=== PATIENT | female | born 1945 | race Caucasian/White ===

== ENCOUNTER 2016-08-29 14:21 | Emergency (ER) | payer OTHER ==
[~2016-08-29 14:21] MED LIST: ATEN-102 PO; CARD120C4 PO; FOSI20TA PO; JANU100T PO; LEVO.025 PO; METF850 PO; PAME75CA PO; PIOG30 PO; WARF1TAB PO; [UNRECOGNIZED DRUG - CODE] PO
[2016-08-29 14:28] VITALS: BP 172/81; PULSE 61; RESP 16; TEMP 98; O2SAT 94
--- NOTE | 2016-08-29 14:36 | PD ---
HPI . left 4th digit laceration this am Chief Complaint: Laceration/Skin Injury Time Seen by Provider: 14:36 Travel History International Travel<30 days: No Contact w/Intl Traveler<30days: No Traveled to known affect area: No History of Present Illness HPI 70 year-old female here with complaints of laceration to her left fourth digit. Patient was working in her yard and accidentally snipped her left fourth digit with her gardening az. She now has a small approximately 1.4 cm laceration to her left fourth digit on the palmar aspect at the PIP joint. She is on warfarin and says she has had difficulty controlling the bleeding, which is why she decided to come to the emergency room for further evaluation. She does not recall the date of her last tetanus vaccine. PFSH Past Medical History Hx Anticoagulant Therapy: Yes Blood Disorders: Yes (GETS CLOTS EASILY) Depression: Yes Heart Rhythm Problems: No Cardiac Catheterization: No Cardiovascular Problems: Yes High Cholesterol: No Congestive Heart Failure: No Diabetes: Yes Diminished Hearing: No Hypertension: Yes Migraines: Yes Menopausal: Yes Past Surgical History Cholecystectomy: Yes Coronary Artery Bypass Graft: No Tonsillectomy: Yes Social History Alcohol Use: No Tobacco Use: No Substance Use: No Allergies-Medications (Allergen,Severity, Reaction): Coded Allergies: Penicillin (Verified Allergy, Severe, Hives, 08/29/16) Reported Meds & Prescriptions Reported Meds & Active Scripts Active Reported Lomotil (Diphenoxylate-Atropine) 2.5-0.025 Mg Tab 1 Tab PO Q6H PRN Zohra Allergy (Fexofenadine HCl) 180 Mg Tab 180 Mg PO DAILY PRN Ascomp-Codeine (Fbpzscmsqu-Lzydnew-Hnxnrfpb-Codeine) 18-462-04-30 Mg Cap 1-2 Cap PO Q4H PRN Do not exceed 6 capsules/day. Magnesium Oxide 500 Mg Tab 250 Mg PO BID Vitamin D3 (Cholecalciferol) 1,000 Unit Chew 1,000 Units CHEW DAILY [id number] (Methylcobalamin) 1 Mg Chew 1,000 Mcg CHEW DAILY Calcium 1200 (Calcium Carbonate-Vitamin D W/Minerals) 1,200-1,000 Mg-Unit Chew 1 Tab CHEW BID Centrum (Multiple Vitamins W/ Minerals) 1 Tab 0.5 Tab PO BID Cartia Xt (Diltiazem ER 24 HR) 120 Mg Caper 120 Mg PO DAILY Warfarin 10 Mg Tab 10 Mg PO DAILY Levoxyl (Levothyroxine Sodium) 25 Mcg Tab 25 Mcg PO DAILY Nortriptyline (Nortriptyline HCl) 75 Mg Cap 150 Mg PO HS Fosinopril (Fosinopril Sodium) 20 Mg Tab 20 Mg PO DAILY Atenolol 100 Mg Tab 75 Mg PO BID Actos (Pioglitazone HCl) 15 Mg Tab 15 Mg PO DAILY Januvia (Sitagliptin Phosphate) 100 Mg Tab 100 Mg PO DAILY Metformin (Metformin HCl) 850 Mg Tab 850 Mg PO BIDPC With meals Review of Systems General / Constitutional: No: Fever Eyes: No: Visual changes HENT: No: Headaches Cardiovascular: No: Chest Pain or Discomfort Respiratory: No: Shortness of Breath Gastrointestinal: No: Abdominal Pain Genitourinary: No: Dysuria Musculoskeletal: No: Pain Skin: Positive Other (left ring finger laceration), No Rash Neurologic: No: Weakness Psychiatric: No: Depression Endocrine: No: Polydipsia Hematologic/Lymphatic: No: Easy Bruising Physical Exam Narrative GENERAL: AAO x 3, no acute distress, Well-nourished, well-developed patient. SKIN: Warm and dry. No visible rashes or bruising. small laceration to left 4th digit palmar side HEAD: Normocephalic and atraumatic. EYES: No scleral icterus. No injection or drainage. ENT: No nasal drainage noted. Mucous membranes pink. Airway patent. NECK: Supple, trachea midline. No JVD. CARDIOVASCULAR: Regular rate and rhythm without murmurs, gallops, or rubs. RESPIRATORY: Breath sounds equal bilaterally. No accessory muscle use. No rhonchi or rales. GASTROINTESTINAL: Abdomen soft, non-tender, nondistended. EXTREMITIES: No cyanosis or edema. movement is normal in all digits of left hand. sensation is intact. BACK: Nontender without obvious deformity. No CVA tenderness. PSYCH: AAO x 3, normal affect. Data Data Last Documented VS Vital Signs Date Time Temp Pulse Resp B/P Pulse Ox O2 Delivery O2 Flow Rate FiO2 08/29/16 14:28 98.0 61 16 172/81 94 Orders Lidocaine 1% Inj (50 Ml) (Xylocaine 1% I (08/29/16 14:45) Tetanus/Diphtheria Tox Adult (Tetanus/Di (08/29/16 14:45) MDM Medical Decision Making Medical Screen Exam Complete: Yes Emergency Medical Condition: Yes Medical Record Reviewed: Yes Differential Diagnosis finger laceration, contusion, less likely fracture Narrative Course 70 year-old female here with complaints of laceration to her left fourth digit. Patient was working in her yard and accidentally snipped her left fourth digit with her gardening az. She now has a small approximately 1.4 cm laceration to her left fourth digit on the palmar aspect at the PIP joint. She is on warfarin and says she has had difficulty controlling the bleeding, which is why she decided to come to the emergency room for further evaluation. She does not recall the date of her last tetanus vaccine. Patient seen and examined. She does have a 1.4 cm laceration Lac repaired and bleeding controlled. Clean dressing applied Tetanus administered No abx. Discussed wound care and cleaning area. Discussed signs of infection Recommend removal in 7-10 days. 4 sutures placed Patient verbalized understanding of instructions, questions were answered, and thanked me for their care. I advised them if their condition worsens, please return to the nearest emergency room for further care. Procedures Procedure Narrative LACERATION LOCATION: Left ring finger LENGTH: 1.4 cm NUMBER OF STITCHES/MARIA M: 4 REPAIR: The area of the laceration was prepped with Betadine and sterilely draped. The laceration was infiltrated with 1% lidocaine digital block. The wound was copiously irrigated and explored without evidence of foreign body, tendon injury or neurovascular injury return tourniquet was used. The wound was closed using 4-0 Prolene. This was a single layer repair. A sterile dressing was applied. The patient was advised to keep the dressing clean and dry. Patient tolerated the procedure well. Diagnosis Primary Impression: Laceration of left ring finger w/o foreign body w/o damage to nail Qualified Code: S61.215A - Laceration of left ring finger w/o foreign body w/ o damage to nail, initial encounter Patient Instructions: Acute Wound Care (ED), Finger Laceration (ED), General Instructions Additional Instructions: Keep area clean and dry. Use soap and water. Use gauze as we discussed and change 1-2 times a day. Watch for signs of infection: fever, redness, swelling, warmth, pus or drainage , red streaks around the cut, and increased pain from the area. If any signs of infection, please go to the nearest emergency room for evaluation. You received a tetanus shot today. You may experience tenderness at the injection site. This is normal. Use Tylenol or Motrin as needed for pain. The sutures will need to be removed in 7-10 days. There were 4 sutures placed. Please return to the emergency department or follow-up with your primary care provider for removal. If area continues to bleed, please return to ED for further treatment/ evaluation. Med/Other Pt SpecificInfo: No Change to Meds Disposition: 01 DISCHARGE HOME Condition: Stable Sydnie Hassan Aug 29, 2016 14:36
[2016-08-29] MEDS ORDERED: TETANUS/DIPHTHERIA TOXOID ADULT 0.5 ML VIAL IM ONE (14:45)
[2016-08-29] MEDS ORDERED: LIDOCAINE HCL 1% 50 ML VIAL INFIL ONE (14:45)
[2016-08-29] MEDS ORDERED: CHOL100025 CHEW (14:51)
[2016-08-29] MEDS ORDERED: LEVO25TA39 PO (14:51)
[2016-08-29] MEDS ORDERED: FEXO15TA PO (14:51)
[2016-08-29] MEDS ORDERED: WARF-22 PO (14:51)
[2016-08-29] MEDS ORDERED: CALCCHW9 CHEW (14:51)
[2016-08-29] MEDS ORDERED: ATEN100T PO (14:51)
[2016-08-29] MEDS ORDERED: CART120C PO (14:51)
[2016-08-29] MEDS ORDERED: MAGN500T2 PO (14:51)
[2016-08-29] MEDS ORDERED: NORT75CA PO (14:51)
[2016-08-29] MEDS ORDERED: LOMO2.5T PO (14:51)
[2016-08-29] MEDS ORDERED: FOSI20TA PO (14:51)
[2016-08-29] MEDS ORDERED: ACTO15TA11 PO (14:51)
[2016-08-29] MEDS ORDERED: SITA1TAB2 PO (14:51)
[2016-08-29] MEDS ORDERED: BUTA1CAP PO (14:51)
[2016-08-29] MEDS ORDERED: METF850T PO (14:51)
[2016-08-29] MEDS ORDERED: MULT-6 PO (14:51)
[2016-08-29] MEDS ORDERED: B12-1CHW CHEW (14:51)
== END 2016-08-29 15:50 | disposition home or self-care (01) ==
LOC: PHEFT 14:21
DX: S61.215A Laceration without foreign body of left ring finger without damage to nail, initial encounter (principal); W27.1XXA Contact with garden tool, initial encounter; Y93.H2 Activity, gardening and landscaping; Y92.007 Garden or yard of unspecified non-institutional (private) residence as the place of occurrence of the external cause; Z23 Encounter for immunization
CPT/HCPCS: 12001; 90471; 90714

== ENCOUNTER → 2016-10-26 | Day surgery (SDC) | payer OTHER ==
[~2016-10-26] MED LIST changes: +ACTO15TA11 PO; +ACTO30TA10 PO; -ATEN-102 PO; +ATEN100T PO; +B12-1CHW CHEW; +BUPIVACAINE HCL PF 0.75% 30 ML VIAL ONE; +BUTA1CAP PO; +CALC600T64 PO; +CALCCHW9 CHEW; -CARD120C4 PO; +CART120C PO; +CENTCHW4 CHEW; +CHOL100025 CHEW; +CLINDAMYCIN PHOS 600 MG/4 ML VIAL ONE; +FEXO15TA PO; -JANU100T PO; +LACTATED RINGER'S 1,000 ML BAG IV ONE; -LEVO.025 PO; +LEVO25TA39 PO; +LIDOCAINE 1.5%/EPINEPHrine 1:200,000 PF SOLN 30 ML AMP ONE; +LOMO2.5T PO; +MAGN500T2 PO; -METF850 PO; +METF850T PO; +METH10003 PO; +MIDAZOLAM HCL 2 MG/2 ML VIAL ONE; +MULT-6 PO; +NORT75CA PO; +ONDANSETRON HCL 4 MG/2 ML VIAL ONE; -PAME75CA PO; +PERC5TAB12 PO; -PIOG30 PO; +PROPOFOL 200 MG/20 ML AMP IV ONE; +SITA1TAB2 PO; +SODIUM CHLOR 0.9% 1000 ML BAG IV ONE; +SODIUM CHLORIDE 0.9% SOLN 100 ML (PAB) BAG IV ONE; +WARF-22 PO; -WARF1TAB PO; -[UNRECOGNIZED DRUG - CODE] PO
--- NOTE | 2016-10-27 09:09 | MP ---
cc: PARKER AMADOR DATE OF SURGERY 10/26/2016 PREOPERATIVE DIAGNOSES 1. Right shoulder rotator cuff tear. 2. Right shoulder impingement syndrome. 3. Right shoulder SLAP labral tear. 4. Right shoulder osteoarthritis acromioclavicular joint. POSTOPERATIVE DIAGNOSES 1. Right shoulder rotator cuff tear. 2. Right shoulder impingement syndrome. 3. Right shoulder SLAP labral tear. 4. Right shoulder osteoarthritis acromioclavicular joint. PROCEDURE Right shoulder arthroscopic rotator cuff repair. Right shoulder arthroscopic subacromial decompression. Right shoulder arthroscopic extensive debridement of labral SLAP tear. Right shoulder arthroscopic distal clavicle excision. SURGEON Dr. Parker Amador MEDICAL INSURANCE CLERK Corona Deal PA-C ANESTHESIA General with interscalene block. ESTIMATED BLOOD LOSS Less than 10 cc. COMPLICATIONS None. IMPLANTS USED Arthrex. JUSTIFICATION This patient is a 71-year-old female who injured the right shoulder. She has had severe pain and weakness in regards to her condition, has failed conservative treatment. Clinical exam as well as MRI confirmed the above-named findings. The patient was counseled as to the risks, benefits and alternatives to the above-named proposed surgical procedure. She did wish to proceed with surgery. PROCEDURE IN DETAIL Written consent was obtained. The patient was identified by name, taken to the operating room, placed supine on the operating table. General anesthesia was administered as well as 900 mg of IV clindamycin. She has a PENICILLIN ALLERGY. She did receive preoperative anterior scalene block to the right upper extremity. The patient was carefully transferred to the left lateral decubitus position. A lateral arm roll was placed. All bony prominences and pressure points were well padded. The patient's neck was positioned, carefully monitored and kept neutral. An arthroscopic arm white was gently applied to the right upper extremity with 10 pounds of traction placed, the right shoulder prepped and draped using isopropyl alcohol, Hibiclens solution and DuraPrep solution. After a time-out was performed, standard anterior and posterior glenohumeral arthroscopic portals established. The glenohumeral joint revealed evidence of labral tearing along the anterior, superior and posterior portions. An arthroscopic shaver was introduced into the anterior portal and extensive debridement of the labrum was performed from the 3 o'clock position to the 12 o'clock position and back down to the 9 o'clock position. There was evidence of grade 2 and some grade 3 chondromalacia changes of the glenohumeral joint. Attention was turned to the subacromial space due to evidence of extensive bursitis. An arthroscopic shaver as entered in the mid-lateral portal. A subacromial decompression was performed. The shaver was used to perform extensive bursectomy. An arthroscopic bur was used to perform an acromioplasty. Electrocautery was used to release the coracoacromial ligament at the site of impingement. There was evidence of severe arthritis of the acromioclavicular joint. A distal clavicle excision was performed with an arthroscopic bur. The bur was used to resect 1 cm distal clavicle from initially the lateral and subsequently anterior portal. There was evidence of a massive rotator cuff tendon tear involving the entire supraspinatus and infraspinatus tendon portion. There was retraction as well. A bur was used to decorticate the greater tuberosity in preparation for rotator cuff tendon repair. Two Arthrex 4.75-mm Bio-SwiveLock anchors were inserted along a medial row. The Arthrex Scorpion device was used. Several #2 FiberTape sutures from the anterior and posterior anchors, through the anterior and posterior portions of the torn tendon. A #2 FiberLink suture was placed along the far-anterior and far-posterior portion as well. An Arthrex double-row SpeedBridge construct was then created with implantation of a posterolateral and anterior lateral anchor. After appropriate tensioning of the sutures and implantation of the lateral row anchors, the rotator cuff repair tendon was probed and noted to have good stability and fixation. At the conclusion of the surgical procedure, the arthroscopic portals were closed with 3-0 Prolene sutures. Sterile dressings were applied. The patient was placed in a sling and swath immobilizer. She tolerated the procedure well. There were no intraoperative complications noted. Parker Deal, physician payroll human resources assistant certified, was present during the entire procedure to include patient positioning and the procedure itself. The medical necessity of the physician payroll human resources assistant was indicated in this case due to the complexity of the procedure. He assisted in appropriate manipulation of the arm, also assisted in positioning of the camera, he assisted with shuttling the sutures and also implantation of suture anchors for the purposes of rotator cuff tendon repair. Parker Amador MD JWSina/SSB /3:29 PM /8:37 AM
== END | disposition home or self-care (01) ==
LOC: ESDC 12:16
PROVIDERS: ATTEND Orthopaedic Surgery Sports Medicine
DX: M75.121 Complete rotator cuff tear or rupture of right shoulder, not specified as traumatic (principal); M75.41 Impingement syndrome of right shoulder; S43.431A Superior glenoid labrum lesion of right shoulder, initial encounter; M19.011 Primary osteoarthritis, right shoulder
CPT/HCPCS: 01630; 01991; 29823; 29824; 29826; 29827; 64417; C1713; J2250; J2405; J7030; J7120

== ENCOUNTER 2016-10-31 18:10 | Emergency (ER) | payer OTHER ==
[~2016-10-31] VITALS: Ht 177.8 cm; Wt 132.0 kg
[~2016-10-31 18:10] MED LIST changes: -ACTO30TA10 PO; -BUPIVACAINE HCL PF 0.75% 30 ML VIAL ONE; -CALC600T64 PO; -CENTCHW4 CHEW; -CLINDAMYCIN PHOS 600 MG/4 ML VIAL ONE; -LACTATED RINGER'S 1,000 ML BAG IV ONE; -LIDOCAINE 1.5%/EPINEPHrine 1:200,000 PF SOLN 30 ML AMP ONE; -METH10003 PO; -MIDAZOLAM HCL 2 MG/2 ML VIAL ONE; -ONDANSETRON HCL 4 MG/2 ML VIAL ONE; -PERC5TAB12 PO; -PROPOFOL 200 MG/20 ML AMP IV ONE; -SODIUM CHLOR 0.9% 1000 ML BAG IV ONE; -SODIUM CHLORIDE 0.9% SOLN 100 ML (PAB) BAG IV ONE
[2016-10-31 18:13] VITALS: BP 145/74; PULSE 63; RESP 17; TEMP 98.2; O2SAT 97
--- NOTE | 2016-10-31 18:46 | PD ---
HPI Chief Complaint: Edema Time Seen by Provider: 18:24 Travel History International Travel<30 days: No Contact w/Intl Traveler<30days: No Traveled to known affect area: No History of Present Illness HPI 71yo F with PMH of DVT on coumadin, DM presents to the ED with c/o right leg swelling and pain today. Pt states she had right rotator cuff surgery on by Dr. Shields and was off coumadin for 5 days. Pt thinks she had DVT in her right leg pain before and not sure if it was also her left leg. States feels it is more swollen and there is red streaks on her knee. States that was how her previous DVT presented. Denies any fever, chest pain, sob, n/v, abdominal pain, focal weakness or numbness or trauma. PFSH Past Medical History Hx Anticoagulant Therapy: Yes Blood Disorders: Yes (GETS CLOTS EASILY) Depression: Yes Heart Rhythm Problems: No Cardiac Catheterization: No Cardiovascular Problems: Yes High Cholesterol: No Congestive Heart Failure: No Diabetes: Yes Patient Takes Glucophage: Yes Diminished Hearing: No Deep Vein Thrombosis: Yes Hypertension: Yes Migraines: Yes Influenza Vaccination: Yes ?: Not LMP: CARVER HAND Menopausal: Yes Past Surgical History Cholecystectomy: Yes Coronary Artery Bypass Graft: No Tonsillectomy: Yes Family History Family Myocardial Infarction: Yes (SON-LA) Social History Alcohol Use: Yes (Rarely) Tobacco Use: No Substance Use: No Allergies-Medications (Allergen,Severity, Reaction): Coded Allergies: Penicillin (Verified Allergy, Severe, Hives, 10/31/16) Reported Meds & Prescriptions Reported Meds & Active Scripts Active Reported Percocet (Oxycodone-Acetaminophen) 5-325 mg Tab 1-2 Tab PO Q4H PRN Calcium 600 + Vit D Tablet (Calcium Carbonate/Vitamin D3) 1 Each Tablet 1 Tab PO DAILY B-12 (Methylcobalamin) 1,000 Mcg Sub 11 Cap PO DAILY Centrum (Multiple Vitamins W/ Minerals) 1 Chew 1 Tab CHEW DAILY Actos (Pioglitazone HCl) 30 Mg Tab 15 Mg PO DAILY Zohra Allergy (Fexofenadine HCl) 180 Mg Tab 180 Mg PO DAILY PRN Magnesium Oxide 500 Mg Tab 250 Mg PO BID Cartia Xt (Diltiazem ER 24 HR) 120 Mg Caper 120 Mg PO DAILY Warfarin 10 Mg Tab 10 Mg PO DAILY Levoxyl (Levothyroxine Sodium) 25 Mcg Tab 25 Mcg PO DAILY Nortriptyline (Nortriptyline HCl) 75 Mg Cap 150 Mg PO HS Fosinopril (Fosinopril Sodium) 20 Mg Tab 20 Mg PO DAILY Atenolol 100 Mg Tab 75 Mg PO BID Januvia (Sitagliptin Phosphate) 100 Mg Tab 100 Mg PO DAILY Metformin (Metformin HCl) 850 Mg Tab 850 Mg PO BIDPC With meals Review of Systems Except as stated in HPI: all other systems reviewed are Neg Physical Exam Narrative GENERAL: 71yo F not in distress. SKIN: Focused skin assessment warm/dry. HEAD: Atraumatic. Normocephalic. EYES: Pupils equal and round. No scleral icterus. No injection or drainage. ENT: No nasal bleeding or discharge. Mucous membranes pink and moist. NECK: Trachea midline. No JVD. CARDIOVASCULAR: Regular rate and rhythm. No murmur appreciated. RESPIRATORY: No accessory muscle use. Clear to auscultation. Breath sounds equal bilaterally. GASTROINTESTINAL: Abdomen soft, non-tender, nondistended. No rebound tenderness or guarding. MUSCULOSKELETAL: RLE: Mild erythematous streaky rash on right knee. +TTP lateral knee. Good ROM in right knee. +Calf tenderness in right leg. Sensation intact. DP 2+. Both legs appear equal size to me. NEUROLOGICAL: Awake and alert. No obvious cranial nerve deficits. Motor grossly within normal limits. Normal speech. PSYCHIATRIC: Appropriate mood and affect; insight and judgment normal. Data Data Last Documented VS Vital Signs Date Time Temp Pulse Resp B/P Pulse Ox O2 Delivery O2 Flow Rate FiO2 10/31/16 21:38 59 16 124/67 97 Room Air 10/31/16 18:13 98.2 Orders Knee, Ltd (1 Or 2vws) (10/31/16 ) Complete Blood Count With Diff (10/31/16 18:37) Basic Metabolic Panel (Bmp) (10/31/16 18:37) Prothrombin Time / Inr (Pt) (10/31/16 18:37) Act Partial Throm Time (Ptt) (10/31/16 18:37) Acetaminophen (Tylenol) (10/31/16 19:00) Us Leg Venous Doppler (10/31/16 ) Labs Laboratory Tests Test 10/31/16 19:10 White Blood Count 5.3 TH/MM3 Red Blood Count 4.00 MIL/MM3 Hemoglobin 10.9 GM/DL Hematocrit 34.0 % Mean Corpuscular Volume 85.1 FL Mean Corpuscular Hemoglobin 27.4 PG Mean Corpuscular Hemoglobin 32.1 % Concent Red Cell Distribution Width 15.3 % Platelet Count 250 TH/MM3 Mean Platelet Volume 7.2 FL Neutrophils (%) (Auto) 57.5 % Lymphocytes (%) (Auto) 24.2 % Monocytes (%) (Auto) 10.3 % Eosinophils (%) (Auto) 7.5 % Basophils (%) (Auto) 0.5 % Neutrophils # (Auto) 3.1 TH/MM3 Lymphocytes # (Auto) 1.3 TH/MM3 Monocytes # (Auto) 0.5 TH/MM3 Eosinophils # (Auto) 0.4 TH/MM3 Basophils # (Auto) 0.0 TH/MM3 CBC Comment DIFF FINAL Differential Comment Prothrombin Time 15.5 SEC Prothromb Time International 1.4 RATIO Ratio Activated Partial 33.2 SEC Thromboplast Time Sodium Level 138 MEQ/L Potassium Level 4.3 MEQ/L Chloride Level 104 MEQ/L Carbon Dioxide Level 27.3 MEQ/L Anion Gap 7 MEQ/L Blood Urea Nitrogen 13 MG/DL Creatinine 0.73 MG/DL Estimat Glomerular Filtration 79 ML/MIN Rate Random Glucose 105 MG/DL Calcium Level 8.9 MG/DL MDM Medical Decision Making Medical Screen Exam Complete: Yes Emergency Medical Condition: Yes Differential Diagnosis DVT vs. mild cellulitis vs. arthritis Narrative Course 71yo well appearing female in with right lower ext swelling and pain today. States that is how her previous DVT presented and had been recently off coumadin. Will check labs including INR and obtain US bilateral lower ext and xray right knee. Will give acetaminophen for pain. Will sign out to next team to follow up. Merlyn Calvillo DO October 31, 2016 18:46
[2016-10-31] MEDS ORDERED: CENTCHW4 CHEW (18:48)
[2016-10-31] MEDS ORDERED: METH10003 PO (18:48)
[2016-10-31] MEDS ORDERED: CALC600T64 PO (18:48)
[2016-10-31] MEDS ORDERED: ACTO30TA10 PO (18:48)
[2016-10-31] MEDS ORDERED: PERC5TAB12 PO (18:48)
--- NOTE | 2016-10-31 18:54 | PD ---
Physical Exam Date Seen by Provider: October 31, 2016 Time Seen by Provider: 18:53 Narrative The patient is a 71-year-old female was initially evaluated by the previous physician, Dr. Calvillo. Please refer to the initial history, physical, diagnostic evaluation, and treatment modality plan. The patient was signed out at 7 PM with x-ray, ultrasound, and laboratory evaluation pending. Data Data Last Documented VS Vital Signs Date Time Temp Pulse Resp B/P Pulse Ox O2 Delivery O2 Flow Rate FiO2 10/31/16 19:00 59 16 131/68 96 Room Air 10/31/16 18:13 98.2 Orders Knee, Ltd (1 Or 2vws) (10/31/16 ) Complete Blood Count With Diff (10/31/16 18:37) Basic Metabolic Panel (Bmp) (10/31/16 18:37) Prothrombin Time / Inr (Pt) (10/31/16 18:37) Act Partial Throm Time (Ptt) (10/31/16 18:37) Acetaminophen (Tylenol) (10/31/16 19:00) Us Leg Venous Doppler (10/31/16 ) Labs Laboratory Tests Test 10/31/16 19:10 White Blood Count 5.3 TH/MM3 Red Blood Count 4.00 MIL/MM3 Hemoglobin 10.9 GM/DL Hematocrit 34.0 % Mean Corpuscular Volume 85.1 FL Mean Corpuscular Hemoglobin 27.4 PG Mean Corpuscular Hemoglobin 32.1 % Concent Red Cell Distribution Width 15.3 % Platelet Count 250 TH/MM3 Mean Platelet Volume 7.2 FL Neutrophils (%) (Auto) 57.5 % Lymphocytes (%) (Auto) 24.2 % Monocytes (%) (Auto) 10.3 % Eosinophils (%) (Auto) 7.5 % Basophils (%) (Auto) 0.5 % Neutrophils # (Auto) 3.1 TH/MM3 Lymphocytes # (Auto) 1.3 TH/MM3 Monocytes # (Auto) 0.5 TH/MM3 Eosinophils # (Auto) 0.4 TH/MM3 Basophils # (Auto) 0.0 TH/MM3 CBC Comment DIFF FINAL Differential Comment Prothrombin Time 15.5 SEC Prothromb Time International 1.4 RATIO Ratio Activated Partial 33.2 SEC Thromboplast Time Sodium Level 138 MEQ/L Potassium Level 4.3 MEQ/L Chloride Level 104 MEQ/L Carbon Dioxide Level 27.3 MEQ/L Anion Gap 7 MEQ/L Blood Urea Nitrogen 13 MG/DL Creatinine 0.73 MG/DL Estimat Glomerular Filtration 79 ML/MIN Rate Random Glucose 105 MG/DL Calcium Level 8.9 MG/DL [facility] Medical Record Reviewed: Yes Supervised Visit with TIFFANY: No Interpretation(s) Laboratory Tests Test 10/31/16 19:10 White Blood Count 5.3 TH/MM3 Red Blood Count 4.00 MIL/MM3 Hemoglobin 10.9 GM/DL Hematocrit 34.0 % Mean Corpuscular Volume 85.1 FL Mean Corpuscular Hemoglobin 27.4 PG Mean Corpuscular Hemoglobin 32.1 % Concent Red Cell Distribution Width 15.3 % Platelet Count 250 TH/MM3 Mean Platelet Volume 7.2 FL Neutrophils (%) (Auto) 57.5 % Lymphocytes (%) (Auto) 24.2 % Monocytes (%) (Auto) 10.3 % Eosinophils (%) (Auto) 7.5 % Basophils (%) (Auto) 0.5 % Neutrophils # (Auto) 3.1 TH/MM3 Lymphocytes # (Auto) 1.3 TH/MM3 Monocytes # (Auto) 0.5 TH/MM3 Eosinophils # (Auto) 0.4 TH/MM3 Basophils # (Auto) 0.0 TH/MM3 CBC Comment DIFF FINAL Differential Comment Prothrombin Time 15.5 SEC Prothromb Time International 1.4 RATIO Ratio Activated Partial 33.2 SEC Thromboplast Time Sodium Level 138 MEQ/L Potassium Level 4.3 MEQ/L Chloride Level 104 MEQ/L Carbon Dioxide Level 27.3 MEQ/L Anion Gap 7 MEQ/L Blood Urea Nitrogen 13 MG/DL Creatinine 0.73 MG/DL Estimat Glomerular Filtration 79 ML/MIN Rate Random Glucose 105 MG/DL Calcium Level 8.9 MG/DL Ultrasound reveals no evidence of deep venous thrombosis within the right lower extremity. Superficial thrombus is noted within the greater saphenous vein. Popliteal cyst measuring 4.7 x 2.3 x 1.3 cm. Differential Diagnosis Differential diagnosis includes DVT, cellulitis, dependent edema, Armstrong cyst, sprain, strain, fracture. Narrative Course The patient was initially evaluated by the previous physician, Dr. Calvillo. Please refer to the initial history, physical, diagnostic evaluation, and treatment modality plan. The patient was signed out at 7 PM with x-ray, ultrasound, and laboratory evaluation pending. Ultrasound reveals no DVT, does reveal superficial thrombus and a popliteal cyst, x-rays negative except for degenerative changes, INR subtherapeutic 1.4, however, patient recently restarted her Coumadin. The patient is advised to follow-up with her primary physician, warm compresses to the right knee and leg as needed, return if symptoms worsen or progress. Diagnosis Primary Impression: Popliteal cyst Qualified Code: M71.21 - Popliteal cyst, right Additional Impression: Superficial thrombosis of leg Qualified Code: I82.811 - Superficial thrombosis of leg, right Patient Instructions: General Instructions Additional Instruction: Please provide a patient a copy of her ultrasound results, x-ray results, and lab results at discharge. Warm compresses to right leg as needed. Follow-up with your primary physician. Return if symptoms worsen or progress. Med/Other Pt SpecificInfo: No Change to Meds Disposition: 01 DISCHARGE HOME Condition: Stable Kobe Breen MD October 31, 2016 18:54
[2016-10-31 19:00] VITALS: BP 131/68; PULSE 59; RESP 16; O2SAT 96
[2016-10-31] MEDS ORDERED: ACETAMINOPHEN 325 MG TAB PO ONE (19:00)
--- NOTE | 2016-10-31 19:16 | RADHPO ---
EXAM DATE/TIME: 10/31/2016 18:57 [facility] COMPARISON: No previous studies available for comparison. INDICATIONS : Complains of pain and redness of right knee. MEDICAL HISTORY : Blood clot right leg SURGICAL HISTORY : None. ENCOUNTER: Initial ACUITY: 1 day PAIN SCORE: 4/10 LOCATION: Right knee FINDINGS: Moderate to severe osteoarthritis is noted involving the patellofemoral and femorotibial joints. The re is no acute fracture or dislocation. No knee joint effusion is noted. CONCLUSION: 1. Moderate to severe osteoarthritis involving the patellofemoral and femorotibial joints. 2. No acute fracture, dislocation or knee joint effusion. Rui Carpenter MD on October 31, 2016 at 19:08 Board Certified Radiologist. This report was verified electronically.
[2016-10-31 19:18] LABS: AUTOMATED NEUTROPHIL # 3.1 TH/MM3 (1.8-7.7); BASOPHIL % 0.5 % (0.0-2.0); EOSINOPHIL # 0.4 TH/MM3 (0-0.4); EOSINOPHIL % 7.5 % (0.0-4.0); HEMO FLAGS DIFF FINAL; LYMPH % 24.2 % (9.0-44.0); LYMPHOCYTE # 1.3 TH/MM3 (1.0-4.8); MEAN CELL VOLUME 85.1 FL (80.0-100.0); MEAN CORPUSCULAR HEMOGLOBIN 27.4 PG (27.0-34.0); MEAN CORPUSCULAR HGB CONC 32.1 % (32.0-36.0); MONO % 10.3 % (0.0-8.0); NEUT % 57.5 % (16.0-70.0); PLATELET COUNT 250 TH/MM3 (150-450); RED CELL DISTRIBUTION WIDTH 15.3 % (11.6-17.2); WHITE BLOOD COUNT 5.3 TH/MM3 (4.0-11.0)
[2016-10-31 19:30] LABS: POTASSIUM 4.3 MEQ/L (3.5-5.1)
[2016-10-31 19:33] LABS: BICARBONATE 27.3 MEQ/L (21.0-32.0)
[2016-10-31 19:57] LABS: APTT (PATIENT) 33.2 SEC (24.3-30.1); INTERNATIONAL NORMALIZED RATIO 1.4 RATIO; PROTHROMBIN TIME - PATIENT 15.5 SEC (9.8-11.6)
[2016-10-31 21:38] VITALS: BP 124/67; PULSE 59; RESP 16; O2SAT 97
--- NOTE | 2016-10-31 22:14 | RADHPO ---
EXAM DATE/TIME: 10/31/2016 21:50 [facility] COMPARISON: No previous studies available for comparison. INDICATIONS : Right leg pain, redness and swelling. MEDICAL HISTORY : Hypertension. DVT. Diabetic. SURGICAL HISTORY : Rotator cuff, right. Cholecystectomy. Tonsillectomy. ENCOUNTER: Initial ACUITY: 1 day PAIN SCORE: 7/10 LOCATION: Right leg. TECHNIQUE: Venous ultrasound of the leg was performed from the inguinal ligament to the proximal calf. Real-mariana e, color Doppler and spectral tracing, compression and augmentation techniques were used. FINDINGS: There is normal compressibility of the deep venous system from the inguinal region to the proximal ca lf. No echogenic clot is seen in the lumen of the common femoral, femoral, popliteal, and posterior tibial veins. There is a normal response of the venous system to proximal and distal augmentation an d respiration. Superficial thrombus is noted within the greater saphenous vein. There is a cystic st ructure within the popliteal region measuring 4.7 x 2.3 x 1.3 cm. CONCLUSION: No evidence of deep venous thrombosis within the right lower extremity. Superficial t hrombus is noted within the greater saphenous vein. Popliteal cyst measuring 4.7 x 2.3 x 1.3 cm. Rui Carpenter MD on October 31, 2016 at 22:10 Board Certified Radiologist. This report was verified electronically.
== END 2016-10-31 22:45 | disposition home or self-care (01) ==
LOC: PHED 18:10
DX: M71.21 Synovial cyst of popliteal space [Baker], right knee (principal); I82.811 Embolism and thrombosis of superficial veins of right lower extremity; E11.9 Type 2 diabetes mellitus without complications; I10 Essential (primary) hypertension; F32.9 Major depressive disorder, single episode, unspecified; Z79.01 Long term (current) use of anticoagulants; Z86.718 Personal history of other venous thrombosis and embolism; Z79.899 Other long term (current) drug therapy; Z88.0 Allergy status to penicillin; R60.0 Localized edema
CPT/HCPCS: 73560; 80048; 85025; 85610; 85730; 93971; 99285

== ENCOUNTER 2017-09-13 23:33 | Emergency (ER) | payer OTHER ==
[~2017-09-13] VITALS: Ht 177.8 cm; Wt 125.0 kg
[~2017-09-13 23:33] MED LIST changes: -ACTO15TA11 PO; -B12-1CHW CHEW; -BUTA1CAP PO; +CALC600T64 PO; -CALCCHW9 CHEW; +CENTCHW4 CHEW; -CHOL100025 CHEW; -LOMO2.5T PO; +METH10003 PO; -MULT-6 PO; +PERC5TAB12 PO; +PIOG30 PO
[2017-09-13 23:37] VITALS: BP 167/77; PULSE 56; RESP 18; TEMP 98.4; O2SAT 98
--- NOTE | 2017-09-14 00:01 | PD ---
HPI Chief Complaint: Head Injury Time Seen by Provider: 23:49 Travel History International Travel<30 days: No Contact w/Intl Traveler<30days: No Traveled to known affect area: No History of Present Illness HPI Patient is a 71-year-old female on Coumadin for DVT history patient was in her garden tonight she did not see the cement towards she has an ER she tripped and fell and hit her head on cement right-sided swelling for the last few hours no visual changes but put ice on but continue to swell comes to the ER a few hours after the fall. She is on Coumadin but her INR she said was taken recently and no one called her to told her to hold the Coumadin so she is assuming that she is therapeutic and not over therapeutic. Patient denies syncope denies shortness of breath denies LOC she has no other complaints except for pain to her right zygomatic and forehead area which is obvious swelling and subcu hematoma bleeding below the skin no laceration seen. On horizontal gaze tracking my finger she does not have any diplopia and she has full range of ocular motion bilateral PFSH Past Medical History Hx Anticoagulant Therapy: Yes Blood Disorders: Yes (GETS CLOTS EASILY) Depression: Yes Heart Rhythm Problems: No Cardiac Catheterization: No Cardiovascular Problems: Yes High Cholesterol: No Congestive Heart Failure: No Diabetes: Yes Patient Takes Glucophage: Yes (09/13/20170) Diminished Hearing: No Deep Vein Thrombosis: Yes Hypertension: Yes Migraines: Yes Tetanus Vaccination: < 5 Years Influenza Vaccination: No LMP: menapause Menopausal: Yes Past Surgical History Cholecystectomy: Yes Coronary Artery Bypass Graft: No Tonsillectomy: Yes Family History Family Myocardial Infarction: Yes ([place]) Social History Alcohol Use: Yes (Rarely) Tobacco Use: No Substance Use: No Allergies-Medications (Allergen,Severity, Reaction): Coded Allergies: penicillin G (Verified Allergy, Severe, Hives, 09/13/17) Reported Meds & Prescriptions Reported Meds & Active Scripts Active Bacitracin Topical 500 Unit/Gm Oint 1 Applic TOPICAL BID Reported Percocet (Oxycodone-Acetaminophen) 5-325 mg Tab 1-2 Tab PO Q4H PRN Calcium 600 + Vit D Tablet (Calcium Carbonate/Vitamin D3) 1 Each Tablet 1 Tab PO DAILY B-12 (Methylcobalamin) 1,000 Mcg Sub 11 Cap PO DAILY Centrum (Multiple Vitamins W/ Minerals) 1 Chew 1 Tab CHEW DAILY Actos (Pioglitazone HCl) 30 Mg Tab 15 Mg PO DAILY Zohra Allergy (Fexofenadine HCl) 180 Mg Tab 180 Mg PO DAILY PRN Magnesium Oxide 500 Mg Tab 250 Mg PO BID Cartia Xt (Diltiazem ER 24 HR) 120 Mg Caper 120 Mg PO DAILY Warfarin 10 Mg Tab 10 Mg PO DAILY Levoxyl (Levothyroxine Sodium) 25 Mcg Tab 25 Mcg PO DAILY Nortriptyline (Nortriptyline HCl) 75 Mg Cap 150 Mg PO HS Fosinopril (Fosinopril Sodium) 20 Mg Tab 20 Mg PO DAILY Atenolol 100 Mg Tab 75 Mg PO BID Januvia (Sitagliptin Phosphate) 100 Mg Tab 100 Mg PO DAILY Metformin (Metformin HCl) 850 Mg Tab 850 Mg PO BIDPC With meals Review of Systems Except as stated in HPI: all other systems reviewed are Neg Physical Exam Narrative GENERAL: Patient is obviously swelling to her right forehead and zygomatic area with sub cutaneous hematoma in her upper and lower eyelid on the right lateral SKIN: Warm and dry. HEAD: Atraumatic. Normocephalic. Traumatic swelling is hematoma subcu to her right forehead right zygomatic area and purple discoloration to the eyelid upper and lower on the lateral aspect of the right EYES: Pupils equal and round. No scleral icterus. No injection or drainage. Patient is full range of motion of her extraocular motions there is no entrapment there is no double vision ENT: No nasal bleeding or discharge. Mucous membranes pink and moist. NECK: Trachea midline. No JVD. CARDIOVASCULAR: Regular rate and rhythm. RESPIRATORY: No accessory muscle use. Clear to auscultation. Breath sounds equal bilaterally. GASTROINTESTINAL: Abdomen soft, non-tender, nondistended. Hepatic and splenic margins not palpable. MUSCULOSKELETAL: Extremities without clubbing, cyanosis, or edema. No obvious deformities. NEUROLOGICAL: Awake and alert. No obvious cranial nerve deficits. Motor grossly within normal limits. Five out of 5 muscle strength in the arms and legs. Normal speech. PSYCHIATRIC: Appropriate mood and affect; insight and judgment normal. Data Data Last Documented VS Orders Orders Ct Brain W/O Iv Contrast(Rout) (09/13/17 ) Ct Facial Bones W/O Iv Cont (09/13/17 ) Complete Blood Count With Diff (09/13/17 23:57) Prothrombin Time / Inr (Pt) (09/13/17 23:57) Comprehensive Metabolic Panel (09/13/17 23:57) Tetanus/Diphtheria Tox Adult (Tetanus/Di (09/14/17 01:30) Acetaminophen (Tylenol) (09/14/17 01:30) Ed Discharge Order (09/14/17 02:15) Labs Laboratory Tests Test 09/14/17 00:01 White Blood Count 7.4 TH/MM3 Red Blood Count 3.91 MIL/MM3 Hemoglobin 11.8 GM/DL Hematocrit 33.3 % Mean Corpuscular Volume 85.2 FL Mean Corpuscular Hemoglobin 30.1 PG Mean Corpuscular Hemoglobin Concent 35.3 % Red Cell Distribution Width 16.3 % Platelet Count 267 TH/MM3 Mean Platelet Volume 7.1 FL Neutrophils (%) (Auto) 59.3 % Lymphocytes (%) (Auto) 23.3 % Monocytes (%) (Auto) 9.0 % Eosinophils (%) (Auto) 7.6 % Basophils (%) (Auto) 0.8 % Neutrophils # (Auto) 4.4 TH/MM3 Lymphocytes # (Auto) 1.7 TH/MM3 Monocytes # (Auto) 0.7 TH/MM3 Eosinophils # (Auto) 0.6 TH/MM3 Basophils # (Auto) 0.1 TH/MM3 CBC Comment DIFF FINAL Differential Comment Prothrombin Time 15.8 SEC Prothromb Time International Ratio 1.6 RATIO Blood Urea Nitrogen 21 MG/DL Creatinine 1.02 MG/DL Random Glucose 87 MG/DL Total Protein 7.2 GM/DL Albumin 3.5 GM/DL Calcium Level 8.8 MG/DL Alkaline Phosphatase 72 U/L Aspartate Amino Transf (AST/SGOT) 25 U/L Alanine Aminotransferase (ALT/SGPT) 21 U/L Total Bilirubin 0.2 MG/DL Sodium Level 137 MEQ/L Potassium Level 4.6 MEQ/L Chloride Level 105 MEQ/L Carbon Dioxide Level 26.2 MEQ/L Anion Gap 6 MEQ/L Estimat Glomerular Filtration Rate 53 ML/MIN MDM Medical Decision Making Medical Screen Exam Complete: Yes Emergency Medical Condition: Yes Differential Diagnosis Traumatic contusion to the forehead hematoma subcutaneous right-sided versus skull fracture versus intracranial hemorrhage versus over anticoagulation risk with Coumadin versus ocular injury versus entrapment of ocular muscles Narrative Course CT face and head showed no intracranial injury there is just a hematoma subcutaneous on the right forehead as well as around the right orbit no orbital fracture no skull fracture no intracranial injury INR is 1.6 mildly subtherapeutic at this time Procedures Procedure Narrative dermabound applied to 0.5 cm superficial lac to face right maxillary area good edge approxiamation Diagnosis Primary Impression: Closed head injury Qualified Codes: S09.90XA - Unspecified injury of head, initial encounter Additional Impression: Traumatic hematoma of forehead Qualified Codes: S00.83XA - Contusion of other part of head, initial encounter Patient Instructions: General Instructions, Head Injury (ED) Scripts Bacitracin Topical (Bacitracin Topical) 500 Unit/Gm Oint 1 APPLIC TOPICAL BID for Infection, #30 GM 0 Refills Prov: Javier Galvan MD 09/14/17 Disposition: 01 DISCHARGE HOME Condition: Good Javier Galvan MD Sep 14, 2017 00:01
[2017-09-14 00:11] LABS: AUTOMATED NEUTROPHIL # 4.4 TH/MM3 (1.8-7.7); BASOPHIL # 0.1 TH/MM3 (0-0.2); BASOPHIL % 0.8 % (0.0-2.0); EOSINOPHIL # 0.6 TH/MM3 (0-0.4); EOSINOPHIL % 7.6 % (0.0-4.0); HEMATOCRIT 33.3 % (35.0-46.0); HEMOGLOBIN 11.8 GM/DL (11.6-15.3); LYMPH % 23.3 % (9.0-44.0); LYMPHOCYTE # 1.7 TH/MM3 (1.0-4.8); MEAN CELL VOLUME 85.2 FL (80.0-100.0); MEAN CORPUSCULAR HEMOGLOBIN 30.1 PG (27.0-34.0); MEAN CORPUSCULAR HGB CONC 35.3 % (32.0-36.0); MEAN PLATELET VOLUME 7.1 FL (7.0-11.0); MONOCYTE # 0.7 TH/MM3 (0-0.9); NEUT % 59.3 % (16.0-70.0); PLATELET COUNT 267 TH/MM3 (150-450); RED BLOOD COUNT 3.91 MIL/MM3 (4.00-5.30); RED CELL DISTRIBUTION WIDTH 16.3 % (11.6-17.2); WHITE BLOOD COUNT 7.4 TH/MM3 (4.0-11.0)
[2017-09-14 00:32] LABS: ALKALINE PHOSPHATASE 72 U/L (45-117); TOTAL BILIRUBIN ADULT 0.2 MG/DL (0.2-1.0); TOTAL PROTEIN 7.2 GM/DL (6.4-8.2)
[2017-09-14 00:34] LABS: ALBUMIN 3.5 GM/DL (3.4-5.0); ALT (GPT) 21 U/L (10-53); AST (GOT) 25 U/L (15-37); BICARBONATE 26.2 MEQ/L (21.0-32.0); BLOOD UREA NITROGEN 21 MG/DL (7-18); CALCIUM 8.8 MG/DL (8.5-10.1); CHLORIDE 105 MEQ/L (98-107); CREATININE 1.02 MG/DL (0.50-1.00); GLOMERULAR FILTRATION RATE 53 ML/MIN (>89); GLUCOSE,RANDOM 87 MG/DL (74-106); INTERNATIONAL NORMALIZED RATIO 1.6 RATIO; PROTHROMBIN TIME - PATIENT 15.8 SEC (9.8-11.6); SODIUM (NA) 137 MEQ/L (136-145)
--- NOTE | 2017-09-14 00:47 | RADRPT ---
EXAM DATE/TIME: 09/14/2017 00:25 [facility] COMPARISON: No previous studies available for comparison. INDICATIONS : Trauma; fall. RADIATION DOSE: 56.35 CTDIvol (mGy) MEDICAL HISTORY : Deep venous thrombosis. Hypertension. SURGICAL HISTORY : None. ENCOUNTER: Initial ACUITY: 1 day PAIN SCALE: 6/10 LOCATION: cranial TECHNIQUE: Multiple contiguous axial images were obtained of the head. Using automated exposure control and adj ustment of the mA and/or kV according to patient size, radiation dose was kept as low as reasonably a chievable to obtain optimal diagnostic quality images. DICOM format image data is available electro nically for review and comparison. FINDINGS: CEREBRUM: The ventricles are normal for age. No evidence of midline shift, mass lesion, hemorrhage or acute in farction. No extra-axial fluid collections are seen. POSTERIOR FOSSA: The cerebellum and brainstem are intact. The 4th ventricle is midline. The cerebellopontine angle i s unremarkable. EXTRACRANIAL: The visualized portion of the orbits is intact. Soft tissue contusion right frontal region. Right per iorbital soft tissue swelling SKULL: The calvaria is intact. No evidence of skull fracture. CONCLUSION: 1. No acute intracranial abnormality. 2. Right frontal soft tissue contusion and periorbital soft tissue swelling. Min Farah MD on September 14, 2017 at 0:41 Board Certified Radiologist. This report was verified electronically.
--- NOTE | 2017-09-14 00:50 | RADRPT ---
EXAM DATE/TIME: 09/14/2017 00:25 [facility] COMPARISON: No previous studies available for comparison. INDICATIONS : Trauma; fall. RADIATION DOSE: 35.43 CTDIvol (mGy) MEDICAL HISTORY : Hypertension. Deep venous thrombosis. SURGICAL HISTORY : None. ENCOUNTER: Initial ACUITY: 1 day PAIN SCORE: 7/10 LOCATION: Bilateral facial TECHNIQUE: Volumetric scanning of the facial bones was performed. Using automated exposure control and adjustme nt of the mA and/or kV according to patient size, radiation dose was kept as low as reasonably achiev able to obtain optimal diagnostic quality images. DICOM format image data is available electronicall y for review and comparison. FINDINGS: ORBITS: The orbital and infraorbital osseous structures are intact. The retroconal structures have a normal configuration. No radiopaque foreign bodies are seen. NASAL BONE: The nasal bone and maxillary spine are intact ZYGOMATIC ARCHES: Symmetric without evidence of fracture. SINUSES: The maxillary, ethmoid and frontal sinuses are intact. No air-fluid levels seen. NASAL CAVITY: The nasal septum is intact and midline. The lacrimal ducts are intact. SOFT TISSUES: No radiopaque foreign bodies seen. Right frontal and periorbital soft-tissue swelling is seen. INTRACRANIAL: No intracranial air seen. CRIBIFORM PLATE: Grossly intact. CONCLUSION: 1. No facial fracture. 2. Right frontal soft tissue contusion and right periorbital soft tissue swelling. Min Farah MD on September 14, 2017 at 0:46 Board Certified Radiologist. This report was verified electronically.
[2017-09-14] MEDS ORDERED: ACETAMINOPHEN 325 MG TAB PO ONE (01:30)
[2017-09-14] MEDS ORDERED: TETANUS/DIPHTHERIA TOXOID ADULT 0.5 ML VIAL IM ONE (01:30)
[2017-09-14] MEDS ORDERED: BACI500O9 TOPICAL (01:58)
== END 2017-09-14 02:21 | disposition home or self-care (01) ==
LOC: NEPE 23:33
DX: S09.90XA Unspecified injury of head, initial encounter (principal); S00.83XA Contusion of other part of head, initial encounter; E11.9 Type 2 diabetes mellitus without complications; I10 Essential (primary) hypertension; D75.9 Disease of blood and blood-forming organs, unspecified; F32.9 Major depressive disorder, single episode, unspecified; W18.00XA Striking against unspecified object with subsequent fall, initial encounter; Z86.718 Personal history of other venous thrombosis and embolism; Z23 Encounter for immunization
CPT/HCPCS: 70450; 70486; 80053; 85025; 85610; 90471; 90714